=== PATIENT | female | born 1975 | race Caucasian/White ===

== ENCOUNTER 2019-06-08 15:52 | Emergency (ER) | payer BC, OTHER ==
[2019-06-08 16:41] LABS: INR-International Normal Ratio 0.9; Prothrombin Time 12.2 SEC (12.0-14.7)
--- NOTE | 2019-06-08 16:48 | RAD ---
PORTABLE CHEST ONE VIEW: 06/08/19 at 4:47 p.m. HISTORY: Chest pain, hypertension. FINDINGS: The heart size is borderline. The lungs are expanded without focal areas of consolidation, pneumothor aces, or pleural effusions. IMPRESSION: No acute process. POS: OFF
[2019-06-08 16:55] LABS: ALT (SGPT) 33 U/L (8-55); AST (SGOT) 21 U/L (5-34); Albumin 4.3 g/dL (3.5-5.0); Alkaline Phosphatase 72 U/L (40-110); Anion Gap 14 mmol/L (10-20); BUN (Urea Nitrogen) 6 mg/dL (7.0-18.7); Bilirubin, Total 0.3 mg/dL (0.2-1.2); Calc. Creatinine Clearance 0 mL/min (70-130); Calcium 9.4 mg/dL (7.8-10.44); Carbon Dioxide 27 mmol/L (22-29); Chloride 102 mmol/L (98-107); Estimated GFR-MDRD Greater than 90; Globulin 3.5 g/dL (2.4-3.5); Glucose 136 mg/dL (70-105); Potassium 3.5 mmol/L (3.5-5.1); Protein, Total 7.8 g/dL (6.0-8.3); Sodium 139 mmol/L (136-145)
[2019-06-08 17:11] LABS: #Basophils 0.1 thou/uL (0.0-0.2); #Eosinphils 0.2 thou/uL (0.0-0.7); #Lymphocytes 2.7 thou/uL (1.20-3.40); #Monocytes 0.6 thou/uL (0.11-0.59); #Neutrophils 3.4 thou/uL (1.40-6.50); %Basophils 1.1 % (0.0-1.0); %Eosinophils 2.2 % (0.0-10.0); %Lymphocytes 39.6 % (21.0-51.0); %Monocytes 8.3 % (0.0-10.0); %Neutrophils 48.9 % (42.0-75.0); Hypochromia SLIGHT = 6-15 cells (100X) (0-5/hpf); MDiff Complete? YES; Mean Corpuscular HGB CONC 28.8 g/dL (32.0-36.0); Mean Corpuscular Hemoglobin 20.4 pg (27.0-31.0); Mean Corpuscular Volume 71.1 fL (78.0-98.0); Mean Platelet Volume 6.9 fL (7.4-10.4); Microcytosis SLIGHT = 6-15 cells (100X) (0-5/hpf); Platelet Count 316 thou/uL (130-400); RBC Distribution Width 15.2 % (11.5-14.5); Red Blood Cell (RBC) Count 4.89 mill/uL (4.20-5.40); White Blood Cell (WBC) Count 6.9 thou/uL (4.8-10.8)
== END 2019-06-08 19:21 | disposition home or self-care (01) ==
LOC: MADERS 15:52
DX: R07.9 Chest pain, unspecified (principal); G43.909 Migraine, unspecified, not intractable, without status migrainosus; I10 Essential (primary) hypertension; F41.9 Anxiety disorder, unspecified; F32.9 Major depressive disorder, single episode, unspecified
CPT/HCPCS: 71045; 80053; 84484; 85025; 85610; 93005